=== PATIENT | male | born 1950 | race Caucasian/White ===

== ENCOUNTER 2024-03-16 07:57 | Emergency (ER) | payer OTHER ==
[~2024-03-16] VITALS: Ht 172.7 cm; Wt 101.7 kg
[2024-03-16] MEDS ORDERED: MONTELUKAST SOD10 MG PO (08:29)
[2024-03-16] MEDS ORDERED: METOPROLOL SUC200 MG PO (08:30)
[2024-03-16] MEDS ORDERED: LANOXIN125 MCG PO (08:31)
[2024-03-16] MEDS ORDERED: LIPITOR40 MG PO (08:31)
[2024-03-16] MEDS ORDERED: COZAAR50 MG PO (08:33)
[2024-03-16] MEDS ORDERED: CETIRIZINE HCL10 MG PO (08:33)
[2024-03-16] MEDS ORDERED: PREDNISONE20 MG PO (09:07)
[2024-03-16 09:15] VITALS: BP 145/99
[2024-03-16] MEDS ORDERED: predniSONE 20 MG TAB PO ONE (09:15)
== END 2024-03-16 09:17 | disposition home or self-care (01) ==
LOC: ED 07:57
DX: H69.82 Other specified disorders of Eustachian tube, left ear (principal); I48.91 Unspecified atrial fibrillation; I10 Essential (primary) hypertension; Z88.8 Allergy status to other drugs, medicaments and biological substances; Z79.899 Other long term (current) drug therapy
CPT/HCPCS: 99282; J7512